=== PATIENT | male | born 2000 | race African-American/Black ===

== ENCOUNTER 2023-02-20 20:35 | Outpatient (CLI) | payer MEDICAID | END 2023-02-20 20:36 | disposition critical access hospital (66) | LOC: EMS 20:35 | DX: R45.82 Worries (principal); F41.9 Anxiety disorder, unspecified | CPT/HCPCS: A0425; A0429; A0999 ==

== ENCOUNTER 2023-02-20 20:54 | Emergency (ER) | payer MEDICAID, OTHER ==
[2023-02-20 21:12] LABS: MUDS CUTOFF CONCENTRATIONS CUTOFF CONC BELOW:
[2023-02-20 21:13] LABS: BILIRUBIN,URINE NEGATIVE (NEGATIVE); GLUCOSE, URINE (UA) NEGATIVE (NEGATIVE); KETONES,URINE (UA) NEGATIVE (NEGATIVE); LEUKOCYTE ESTERASE, URINE NEGATIVE (NEGATIVE); NITRITE,URINE NEGATIVE (NEGATIVE); OCCULT BLOOD,URINE NEGATIVE (NEGATIVE); PH,URINE 6.5 PH (5.0-7.5); PROTEIN,URINE NEGATIVE (NEGATIVE); UROBILINOGEN,URINE 0.2 (NORMAL) E.U./dL (NORMAL)
[2023-02-20 21:19] LABS: BASOPHILS % (AUTO) 1.1 %; EOSINOPHILS % (AUTO) 0.3 %; HCT - HEMATOCRIT 41.9 % (42.0-52.0); HGB - HEMOGLOBIN 13.4 g/dL (14.0-18.0); LYMPHOCYTES # (AUTO) 0.8 10^3/uL (1.5-3.5); LYMPHOCYTES % (AUTO) 22.3 %; MEAN CORPUSCULAR HEMOGLOBIN 31.2 pg (27.0-31.0); MEAN CORPUSCULAR VOLUME 97.4 fL (80.0-94.0); MEAN PLATELET VOLUME 10.5 fL (7.4-11.4); MONOCYTES # (AUTO) 0.2 10^3/uL (0.0-1.0); MONOCYTES % (AUTO) 6.6 %; NEUTROPHILS # (AUTO) 2.5 10^3/uL (1.5-6.6); NEUTROPHILS % (AUTO) 69.4 %; PLT - PLATELET COUNT 155 10^3/uL (130-450); RED CELL DISTRIBUTION WIDTH 12.9 % (12.0-15.0); WHITE BLOOD COUNT 3.6 x10^3/uL (4.8-10.8)
[2023-02-20 21:20] LABS: CLARITY,URINE CLEAR (CLEAR)
[2023-02-20 21:26] LABS: AMPHETAMINE SCREEN,URINE NEGATIVE (NEGATIVE); BARBITURATE SCREEN,UR NEGATIVE (NEGATIVE); BENZODIAZEPINES SCREEN, URINE NEGATIVE (NEGATIVE); COCAINE SCREEN URINE NEGATIVE (NEGATIVE); METHADONE SCREEN, URINE NEGATIVE (NEGATIVE); METHAMPHETAMINES SCREEN, URINE NEGATIVE (NEGATIVE); OPIATE SCREEN, URINE NEGATIVE (NEGATIVE); OXYCODONE SCREEN, URINE NEGATIVE (NEGATIVE); PROPOXYPHENE SCREEN, URINE NEGATIVE (NEGATIVE); THC CANNABINOID SCREEN, URINE POSITIVE (NEGATIVE); TRICYCLIC ANTIDEPRESSANT,URINE NEGATIVE (NEGATIVE)
[2023-02-20 21:33] LABS: ACETAMINOPHEN < 10 ug/mL (10-30); ALBUMIN 3.9 g/dL (3.2-5.5); ALBUMIN/GLOBULIN RATIO 1.6 (1.0-2.2); ALKALINE PHOSPHATASE 57 IU/L (42-121); ALT ALANINE AMINOTRANSFERASE 86 IU/L (10-60); AST ASPARTATE AMINOTRANSFERASE 67 IU/L (10-42); BILIRUBIN,TOTAL 0.5 mg/dL (0.2-1.0); BUN - BLOOD UREA NITROGEN 16 mg/dL (6-20); CALCIUM 9.1 mg/dL (8.5-10.3); CARBON DIOXIDE - CO2 30 mmol/L (21-32); CHLORIDE 102 mmol/L (101-111); CREATININE 1.2 mg/dL (0.6-1.2); ETOH - ETHANOL < 5.0 mg/dL; GFR - MDRD 91 (>89); GLUCOSE 119 mg/dL (70-100); LIPASE 44 U/L (22-51); POTASSIUM 3.5 mmol/L (3.5-5.0); SALICYLATE < 6.0 mg/dL; SODIUM 140 mmol/L (135-145); TOTAL PROTEIN 6.4 g/dL (6.7-8.2)
--- NOTE | 2023-02-21 04:38 | ED Physician Documentation ---
PD HPI MHE - Stated complaint Stated Complaint: ANXIETY - Chief complaint Chief Complaint: General - History obtained from History obtained from: Patient - History of Present Illness Primary symptom: Suicidal ideation, Psychosis, Depression, Anxiety. No: Suicide attempt, Homicidal ideation Timing - onset: How many weeks ago (3) Contributing factors: Work, Substance abuse - drugs Similar symptoms before: No diagnosis Recently seen: Not recently seen - Additional information Additional information: 22-year-old Barrington Bonilla this has himself from the [employer] and he is working in the private sector doing IT work. He reports that over the past 3 weeks he has become more depressed and anxious. He felt that cannabis might help this and he found that this was making things worse. He talked to a crisis line beka who intervened having an ambulance come to his house to pick him up. He states that he had some suicidal ideation and he no longer has suicidal ideation. He denies any homicidal ideation. He does state that he is having difficulty sleeping and he is not much of a social person. He lives in [place] in an apartment alone and has a job. He does not have a girlfriend and has not had a girlfriend in the last 3 years. His family lives back in [place] and his mother has a history of depression and anxiety. He does not know of anybody in his family being hospitalized for psychiatric reasons. He does admit to hearing voices he denies command hallucinations he does acknowledge persecutory voices. Review of Systems Constitutional: denies: Fever Eyes: denies: Decreased vision Ears: denies: Ear pain Nose: denies: Rhinorrhea / runny nose, Congestion Throat: denies: Sore throat Cardiac: denies: Chest pain / pressure, Palpitations Respiratory: denies: Dyspnea, Cough GI: denies: Abdominal Pain, Nausea, Vomiting, Constipation, Diarrhea : denies: Dysuria, Frequency Skin: denies: Rash Musculoskeletal: denies: Neck pain, Back pain, Extremity pain Neurologic: denies: Generalized weakness, Focal weakness, Numbness Psychiatric: reports: Depressed, Hallucinations, Anxiety, Insomnia PD PAST MEDICAL HISTORY - Past Surgical History Past Surgical History: No - Allergies Allergies/Adverse Reactions: Allergies Allergy/AdvReac Type Severity Reaction Status Date / Time No Known Drug Allergies Allergy Verified 02/20/23 21:08 - Social History Does the pt smoke?: No Smoking Status: Never smoker Does the pt drink ETOH?: No Does the pt have substance abuse?: Yes Substance Use and Type: Marijuana - Immunizations Immunizations are current?: Yes - POLST Patient has POLST: No PD ED PE NORMAL - Vitals Vital signs reviewed: Yes (hypertensive ) - General General: Alert and oriented X 3, No acute distress, Well developed/nourished, Other (speech is quiet affect is blunted. ) - HEENT HEENT: Atraumatic, PERRL, EOMI - Neck Neck: Supple, no meningeal sign, No bony TTP - Cardiac Cardiac: RRR, No murmur - Respiratory Respiratory: No respiratory distress, Clear bilaterally - Abdomen Abdomen: Soft, Non tender - Back Back: No CVA TTP, No spinal TTP - Derm Derm: Normal color, Warm and dry, No rash - Extremities Extremities: No deformity, No edema - Neuro Neuro: Alert and oriented X 3, human projectile 2-12 intact, No motor deficit, No sensory deficit, Normal speech Eye Opening: Spontaneous Motor: Obeys Commands Verbal: Oriented GCS Score: 15 - Psych Psych: Other (Mood is withdrawn and the affect is blunted) Results - Vitals Vitals: Vital Signs - 24 hr 02/20/23 02/20/23 21:01 21:36 Temperature 37.3 C Heart Rate 99 Respiratory 19 16 Rate Blood Pressure 144/86 H O2 Saturation 99 Oxygen O2 Source Room air - Labs Labs: Laboratory Tests 02/20/23 02/20/23 02/20/23 21:07 21:13 21:13 WBC 3.6 L RBC 4.30 L Hgb 13.4 L Hct 41.9 L MCV 97.4 H MCH 31.2 H MCHC 32.0 RDW 12.9 Plt Count 155 MPV 10.5 Neut # (Auto) 2.5 Lymph # (Auto) 0.8 L [place] # (Auto) 0.2 Eos # (Auto) 0.0 Baso # (Auto) 0.0 Absolute Nucleated RBC 0.00 Nucleated RBC % 0.0 Sodium 140 Potassium 3.5 Chloride 102 Carbon Dioxide 30 Anion Gap 8.0 BUN 16 Creatinine 1.2 Estimated GFR (MDRD) 91 Glucose 119 H Calcium 9.1 Total Bilirubin 0.5 AST 67 H ALT 86 H Alkaline Phosphatase 57 Total Protein 6.4 L Albumin 3.9 Globulin 2.5 Albumin/Globulin Ratio 1.6 Lipase 44 TSH Urine Color YELLOW Urine Clarity CLEAR Urine pH 6.5 Ur Specific [place] 1.010 Urine Protein NEGATIVE Urine Glucose (UA) NEGATIVE Urine Ketones NEGATIVE Urine Occult Blood NEGATIVE Urine Nitrite NEGATIVE Urine Bilirubin NEGATIVE Urine Urobilinogen 0.2 (NORMAL) Ur Leukocyte Esterase NEGATIVE Ur Microscopic Review NOT INDICATED Urine Culture Comments NOT INDICATED Salicylates < 6.0 Urine Opiates Screen NEGATIVE Ur Oxycodone Screen NEGATIVE Urine Methadone Screen NEGATIVE Ur Propoxyphene Screen NEGATIVE Acetaminophen < 10 L Ur Barbiturates Screen NEGATIVE Ur Tricyclics Screen NEGATIVE Ur Phencyclidine Scrn NEGATIVE Ur Amphetamine Screen NEGATIVE U Methamphetamines Scrn NEGATIVE U Benzodiazepines Scrn NEGATIVE Urine Cocaine Screen NEGATIVE U Cannabinoids Screen POSITIVE H Ethyl Alcohol < 5.0 02/20/23 21:13 WBC RBC Hgb Hct MCV MCH MCHC RDW Plt Count MPV Neut # (Auto) Lymph # (Auto) [place] # (Auto) Eos # (Auto) Baso # (Auto) Absolute Nucleated RBC Nucleated RBC % Sodium Potassium Chloride Carbon Dioxide Anion Gap BUN Creatinine Estimated GFR (MDRD) Glucose Calcium Total Bilirubin AST ALT Alkaline Phosphatase Total Protein Albumin Globulin Albumin/Globulin Ratio Lipase TSH 2.38 Urine Color Urine Clarity Urine pH Ur Specific Shawnee Urine Protein Urine Glucose (UA) Urine Ketones Urine Occult Blood Urine Nitrite Urine Bilirubin Urine Urobilinogen Ur Leukocyte Esterase Ur Microscopic Review Urine Culture Comments Salicylates Urine Opiates Screen Ur Oxycodone Screen Urine Methadone Screen Ur Propoxyphene Screen Acetaminophen Ur Barbiturates Screen Ur Tricyclics Screen Ur Phencyclidine Scrn Ur Amphetamine Screen U Methamphetamines Scrn U Benzodiazepines Scrn Urine Cocaine Screen U Cannabinoids Screen Ethyl Alcohol PD Medical Decision Making - ED course Complexity details: reviewed results, re-evaluated patient, considered differential, d/w patient Reviewed Lab Results: We evaluated complete blood count which showed a mildly depressed white blood cell count of 3.6 hemoglobin and hematocrit were 13.4 and 41.9 platelets are normal at 155 normal electrolytes normal kidney function there is mild elevation of the AST and ALT TSH is normal at 238 urinalysis is unremarkable and tox screen shows cannabis and no ethyl alcohol. ED course: 22-year-old male brought to the hospital by paramedics after being called by the crisis line reports depression, anxiety and auditory hallucinations. He reports insomnia, poor performance at work and lack of social life. The patient is no longer suicidal and he is voluntary. He is asking for help and we have initiated telepsych this morning. Telepsych is awaited and and Dr. Mk Tam has made recommendations that the patient receive Zyprexa and increased dose to 10 mg daily and resume his Prozac at his prior dose. She is recommending inpatient psychiatric treatment and if the patient is unwilling she recommends that the medication changes as above. She recommends we start him on these medications while we are looking for placement. At shift change we are awaiting evaluation by social work with anticipation of transfer to a psychiatric facility The patient's care has been turned over to Dr. Goldman.
[2023-02-21] MEDS ORDERED: OLANZapine ODT 5 MG TABLET TL ONE (06:00)
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
--- NOTE | 2023-02-21 12:36 | ED Physician Documentation ---
ED Addendum - Addendum Addendum: 02/21/23 12:35 Patient accepted to [facility] by Dr. Kruger. COBRA forms completed. Patient will be transferred. This document was made in part using voice recognition software. While efforts are made to proofread this document, sound alike and grammatical errors may occur. Departure - Departure Disposition: [facility] Hosp/Unit DC/Xfer Clinical Impression: Bipolar 1 disorder Condition: Stable
[2023-02-21 13:38] VITALS: BP 102/43
--- NOTE | 2023-02-21 14:42 | ED Physician Documentation ---
ED Addendum - Addendum Addendum: 02/21/23 14:42 The patient changed his mind about going to an inpatient psychiatric facility. He states that he feels like the marijuana has worn off and his paranoia is decreased. He states that he has his normal psychiatric medication at home and he will resume this. He denies feeling suicidal or homicidal. No hallucinations. Patient contracts for safety. Patient counseled regarding signs and symptoms for which I believe and urgent re-evaluation would be necessary. Patient with good understanding of and agreement to plan and is comfortable going home at this time This document was made in part using voice recognition software. While efforts are made to proofread this document, sound alike and grammatical errors may occur. Departure - Departure Disposition: Home, Self Care Clinical Impression: Bipolar 1 disorder Condition: Good Instructions: ED Manic Depression Follow-Up: your,doctor on Friday [Other] - Within 3 Days Comments: Please resume your normal medications when you get home today. Please follow-up with your doctor on Friday. Please return if you worsen. Please avoid marijuana as this may increase your paranoia. Crisis Line and is available to talk to someone [email or web address] is also available to chat with someone online if you prefer. There are also many resources on this website and apps for your phone to help with your mental health You can also text the word START to [phone] to chat with someome via text.
== END 2023-02-21 14:56 | disposition home or self-care (01) ==
LOC: EDUNIT# → ED 20:54
DX: F31.64 Bipolar disorder, current episode mixed, severe, with psychotic features (principal); Z20.822 Contact with and (suspected) exposure to COVID-19
CPT/HCPCS: 36415; 80053; 80306; 80307; 80320; 80329; 81003; 83690; 84443; 85025; 87635; 99283; 99284; A9270; G0427; Q3014; 81001; 87086